=== PATIENT | female | born 2000 | race American Indian/Alaskan Native ===

== ENCOUNTER 2021-11-01 07:37 | Emergency (ER) | payer SELFPAY ==
[2021-11-01] MEDS ORDERED: IBUPROFEN 600 MG TAB PO ONE (10:48)
[2021-11-01] MEDS ORDERED: ONDANSETRON 4 MG ODT TAB PO ONE (10:48)
--- NOTE | 2021-11-01 10:51 | Emergency Department Report ---
ED General Adult HPI - General Chief complaint: Nausea/Vomiting/Diarrhea Stated complaint: N/V/D PUI?: Yes Source: patient Mode of arrival: Ambulatory - History of Present Illness Initial comments: 21-year-old morbid obese -[place] female presents to the emergency room stating she has body aches headaches she had vomited that started yesterday. Patient is unvaccinated for Covid. She has not recently tested for Covid. She denies any past medical history. She denies any diarrhea no loss of taste or smell. Vital signs are stable 99% on room air heart rate 83 blood pressure 132/81. Patient is afebrile. Onset/Timin -: days(s) Quality: aching Consistency: constant Improves with: none Worsens with: none Associated Symptoms: headaches, nausea/vomiting, other (Body aches) Treatments Prior to Arrival: none - Related Data Allergies Allergy/AdvReac Type Severity Reaction Status Date / Time No Known Allergies Allergy Unverified 11/01/21 07:42 ED Review of Systems ROS: Stated complaint: N/V/D Other details as noted in HPI Comment: All other systems reviewed and negative ED Physical Exam - General General appearance: alert, in no apparent distress - Head Head exam: Present: atraumatic, normocephalic - Eye Eye exam: Present: normal appearance - ENT ENT exam: Present: normal orophraynx, mucous membranes moist, normal external ear exam - Neck Neck exam: Present: normal inspection, full ROM - Respiratory Respiratory exam: Present: normal lung sounds bilaterally. Absent: respiratory distress - Cardiovascular Cardiovascular Exam: Present: regular rate, normal rhythm. Absent: systolic murmur, diastolic murmur, rubs, gallop - GI/Abdominal GI/Abdominal exam: Present: soft, normal bowel sounds - Extremities Exam Extremities exam: Present: normal inspection - Back Exam Back exam: Present: normal inspection - Neurological Exam Neurological exam: Present: alert, oriented X3 - Psychiatric Psychiatric exam: Present: normal affect, normal mood - Skin Skin exam: Present: warm, dry, intact, normal color. Absent: rash ED Course Vital Signs 11/01/21 11/01/21 11:05 11:38 Pulse Rate 102 H Respiratory 16 12 Rate Blood Pressure 127/69 [Left] O2 Sat by Pulse 99 Oximetry ED Medical Decision Making - Medical Decision Making 21-year-old morbid obese -[place] female presents to the emergency room stating she has body aches headaches she had vomited that started yesterday. Patient is unvaccinated for Covid. She has not recently tested for Covid. She denies any past medical history. She denies any diarrhea no loss of taste or smell. Vital signs are stable 99% on room air heart rate 83 blood pressure 132/81. Patient is afebrile. Patient has stable vital signs. Examination is unremarkable. Discussed with patient she needs to get Covid tested. She can take Tylenol ibuprofen increase your fluids. Consider getting vaccinated. Critical care attestation.: If time is entered above; I have spent that time in minutes in the direct care of this critically ill patient, excluding procedure time. ED Disposition Clinical Impression: Suspected COVID-19 virus infection Disposition: HOME / SELF CARE / HOMELESS Is pt being admited?: No Does the pt Need Aspirin: No Condition: Stable Instructions: Prevent the Spread of COVID-19 if You Are Sick - CDC, COVID-19 Frequently Asked Questions, COVID-19: How to Protect Yourself and Others - CDC Additional Instructions: Your symptoms appear most consistent with a nonspecific viral syndrome. However, given this current pandemic, COVID-19 is in the differential of possibilities. Despite your previous negative COVID-19 test, I do recommend repeat outpatient Covid 19 testing. In the meantime, isolate/quarantine yourself and stay away from anyone who is elderly, immunocompromised or chronically ill. You can use ibuprofen every 6-8 hours and Tylenol every 4-8 hours, using the dosing on the back of the bottle, as needed for any fever or body aches. Return to the emergency department with any worsening of your symptoms, development of chest pain or shortness of breath, or with any acute distress. Referrals: PRIMARY CARE [Primary Care Provider] - 3-5 Days [facility] [Provider Group] - 3-5 Days Forms: Work/School Release Form(ED)
[2021-11-01 11:39] VITALS: BP 127/69
== END 2021-11-01 13:09 | disposition home or self-care (01) ==
LOC: ED 07:37
DX: M79.18 Myalgia, other site (principal); R51.9 Headache, unspecified; R11.10 Vomiting, unspecified; Z20.822 Contact with and (suspected) exposure to COVID-19
CPT/HCPCS: 99282; J3490; Q0162